=== PATIENT | female | born 1950 | race Caucasian/White ===

== ENCOUNTER 2016-07-04 20:14 | Emergency (ER) | payer OTHER ==
--- NOTE | 2016-07-04 22:57 | ED NURSING NOTES ---
Clinical Report - Nurses [facility] [address] [place] [address] 07/04/2016 20:23 Patient: LEBRON KEY TRIAGE Triage time 20:Jul 04 2016. Acuity: LEVEL 4. Chief Complaint: (right leg pain). 20:32 07/04/16. SEPSIS SCREEN: Sepsis Screen. Negative (no infection suspected/documented). VIDHI COMA SCORE: Vidhi Coma Scale: 15- eyes open spontaneously (4); best verbal response- oriented x 4 (5); best motor response- obeys commands (6). --20:37 Katlin Yip R.N. 20:32 07/04/16. BP: 169/97. HR: 90. RR: 18. O2 saturation: 99%. Temp: 98.4 F. Pain level now: 09/30. --20:37 Katlin Yip R.N. Weight: 63.5 kg. Height/Length: 64 inches Per Patient. BMI: 24. --20:32 Katlin Yip R.N. Medications PROzac Oral (Capsule 40 mg) 1 capsule, daily. --20:34 Katlin Yip R.N. CHOLESTEROL MED. --20:34 Katlin Yip R.N. Carvedilol Oral. --20:35 Katlin Yip R.N. Centrum. --20:35 Katlin Yip R.N. Calcium Supplement. --20:35 Katlin Yip R.N. Apspirin. --20:35 Katlin Yip R.N. Medication/allergy information source: the patient. --20:37 Katlin Yip R.N. Allergies No Known Drug Allergy. --20:35 Katlin Yip R.N. History Arrived by private vehicle. Historian: patient. Accompanied by family. Onset. (1 weeks ago). ( pain ongoing for 1 week. worse today, unable to sleep due to pain). No fever, weakness, cough, difficulty breathing or skin rash. Denies muscle aches. 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 SOCIAL HX: Heavy tobacco smoker (cigarette)- 1 pack per day. No alcohol use or drug use. No infectious disease exposure. ABUSE ASSESSMENT: No report of abuse. SELF HARM ASSESSMENT: A self harm assessment was performed. The patient answered "no" to the question "Have you recently felt down, depressed, or hopeless?", "Have you noticed less interest or pleasure in doing things?", "Do you have thoughts of harming or killing yourself?", "Are you here because you tried to hurt yourself?", "Have you ever tried to hurt yourself before today?", "Have you recently had thoughts about harming or killing others?" and "Do you have any dangerous items in your possession?". NUTRITIONAL RISK ASSESSMENT: The nutritional risk assessment revealed no deficiencies. FUNCTIONAL ASSESSMENT: Functional assessment: no impairments noted. LEARNING NEEDS ASSESSMENT: The learning needs assessment revealed no barriers. SKIN INTEGRITY ASSESSMENT: Skin integrity risk assessment completed. No skin integrity risk identified. --20:37 Katlin Yip R.N. PROBLEMS: Hypertension. Hypercholesterolemia. Depression. --20:36 Katlin Yip R.N. ADDITIONAL SURGERIES: Mastectomy. Wrist surgery. --20:36 Katlin Yip R.N. Interventions 20:36 07/04/16. ID band on patient. --20:37 Katlin Yip R.N. PHYSICAL ASSESSMENT 20:35 07/04/16. GENERAL / NEURO / PSYCH: Alert. Oriented X 4. Appears in no acute distress. HEENT: Pupils equal, round and reactive to light. Mucous membranes are pink. RESPIRATORY: Breath sounds within normal limits. CVS: Pulses within normal limits. EXTREMITIES: Extremities atraumatic. No motor deficit in the extremities. Sensation intact. No extremity rash. No upper extremity edema. No lower extremity edema. Normal gait. SKIN: Skin intact. Skin is warm and dry. Normal skin turgor. --20:53 Katlin Yip R.N. NURSING PROGRESS NOTES 20:32 07/04/16. The initial plan of care for this patient includes an assessment with efforts to address the patient's anxiety; the presence of pain; impairment of the neurological and musculoskeletal system. This plan of care was discussed with the patient. Reassurance given. Two patient identifiers checked. Side rails up x 1. Bed placed in lowest position. Brakes of bed on. Patient ready for evaluation. --20:52 Katlin Yip R.N. Checked patient name and birthdate: patient confirmed. Blood samples drawn from the right antecubital space with syringe and 23g butterfly by tech per protocol ; labeled in presence of the patient: rainbow set. --21:15 Ting Vaughan 21:55 07/04/16. ( us completed. no change in patient condition). --21:55 Katlin Yip R.N. 22:19 07/04/16. The patient reports no complaints and she is resting quietly. Overall patient status is the same- she states feels the same. Patient waiting for disposition. --22:19 Katlin Yip R.N. DISPOSITION / DISCHARGE 23:24 07/04/16. Departure time: 23:Jul 04 2016. Condition at departure: improved and stable. The goals identified in the patient's plan of care were met. No learning barriers present. Reviewed medication(s) side effects, precautions, dosing and course information. Prescription(s) given to the patient. Patient verbalized understanding. Written instructions provided in Romansh. The patient was discharged home and accompanied by crystal mounter. She left the Emergency Department ambulatory and via private vehicle. Bag Machine Operator Helper driving. FALL RISK ASSESSMENT: Fall risk assessment completed. No fall risk identified. --23:25 Katlin Yip R.N. 22:51 07/04/16. BP: 154/90. HR: 88. RR: 16. O2 saturation: 97%. Pain level now: 09/30. 20:32 07/04/16. BP: 169/97. HR: 90. RR: 18. O2 saturation: 99%. Temp: 98.4 F. Pain level now: 09/30. --23:25 Katlin Yip R.N. Locked/Released at 07/04/2016 23:25 by Katlin Yip R.N.
--- NOTE | 2016-07-04 22:57 | ED NURSING NOTES ---
Clinical Report - Nurses [facility] [address] [place] [address] 07/04/2016 20:23 Patient: LEBRON KEY TRIAGE Triage time 20:Jul 04 2016. Acuity: LEVEL 4. Chief Complaint: (right leg pain). 20:32 07/04/16. SEPSIS SCREEN: Sepsis Screen. Negative (no infection suspected/documented). VIDHI COMA SCORE: Vidhi Coma Scale: 15- eyes open spontaneously (4); best verbal response- oriented x 4 (5); best motor response- obeys commands (6). --20:37 Katlin Yip R.N. 20:32 07/04/16. BP: 169/97. HR: 90. RR: 18. O2 saturation: 99%. Temp: 98.4 F. Pain level now: 09/30. --20:37 Katlin Yip R.N. Weight: 63.5 kg. Height/Length: 64 inches Per Patient. BMI: 24. --20:32 Katlin Yip R.N. Medications PROzac Oral (Capsule 40 mg) 1 capsule, daily. --20:34 Katlin Yip R.N. CHOLESTEROL MED. --20:34 Katlin Yip R.N. Carvedilol Oral. --20:35 Katlin Yip R.N. Centrum. --20:35 Katlin Yip R.N. Calcium Supplement. --20:35 Katlin Yip R.N. Apspirin. --20:35 Katlin Yip R.N. Medication/allergy information source: the patient. --20:37 Katlin Yip R.N. Allergies No Known Drug Allergy. --20:35 Katlin Yip R.N. History Arrived by private vehicle. Historian: patient. Accompanied by family. Onset. (1 weeks ago). ( pain ongoing for 1 week. worse today, unable to sleep due to pain). No fever, weakness, cough, difficulty breathing or skin rash. Denies muscle aches. 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 SOCIAL HX: Heavy tobacco smoker (cigarette)- 1 pack per day. No alcohol use or drug use. No infectious disease exposure. ABUSE ASSESSMENT: No report of abuse. SELF HARM ASSESSMENT: A self harm assessment was performed. The patient answered "no" to the question "Have you recently felt down, depressed, or hopeless?", "Have you noticed less interest or pleasure in doing things?", "Do you have thoughts of harming or killing yourself?", "Are you here because you tried to hurt yourself?", "Have you ever tried to hurt yourself before today?", "Have you recently had thoughts about harming or killing others?" and "Do you have any dangerous items in your possession?". NUTRITIONAL RISK ASSESSMENT: The nutritional risk assessment revealed no deficiencies. FUNCTIONAL ASSESSMENT: Functional assessment: no impairments noted. LEARNING NEEDS ASSESSMENT: The learning needs assessment revealed no barriers. SKIN INTEGRITY ASSESSMENT: Skin integrity risk assessment completed. No skin integrity risk identified. --20:37 Katlin Yip R.N. PROBLEMS: Hypertension. Hypercholesterolemia. Depression. --20:36 Katlin Yip R.N. ADDITIONAL SURGERIES: Mastectomy. Wrist surgery. --20:36 Katlin Yip R.N. Interventions 20:36 07/04/16. ID band on patient. --20:37 Katlin Yip R.N. PHYSICAL ASSESSMENT 20:35 07/04/16. GENERAL / NEURO / PSYCH: Alert. Oriented X 4. Appears in no acute distress. HEENT: Pupils equal, round and reactive to light. Mucous membranes are pink. RESPIRATORY: Breath sounds within normal limits. CVS: Pulses within normal limits. EXTREMITIES: Extremities atraumatic. No motor deficit in the extremities. Sensation intact. No extremity rash. No upper extremity edema. No lower extremity edema. Normal gait. SKIN: Skin intact. Skin is warm and dry. Normal skin turgor. --20:53 Katlin Yip R.N. NURSING PROGRESS NOTES 20:32 07/04/16. The initial plan of care for this patient includes an assessment with efforts to address the patient's anxiety; the presence of pain; impairment of the neurological and musculoskeletal system. This plan of care was discussed with the patient. Reassurance given. Two patient identifiers checked. Side rails up x 1. Bed placed in lowest position. Brakes of bed on. Patient ready for evaluation. --20:52 Katlin Yip R.N. Checked patient name and birthdate: patient confirmed. Blood samples drawn from the right antecubital space with syringe and 23g butterfly by tech per protocol ; labeled in presence of the patient: rainbow set. --21:15 Ting Vaughan 21:55 07/04/16. ( us completed. no change in patient condition). --21:55 Katlin Yip R.N. 22:19 07/04/16. The patient reports no complaints and she is resting quietly. Overall patient status is the same- she states feels the same. Patient waiting for disposition. --22:19 Katlin Yip R.N. DISPOSITION / DISCHARGE 23:24 07/04/16. Departure time: 23:Jul 04 2016. Condition at departure: improved and stable. The goals identified in the patient's plan of care were met. No learning barriers present. Reviewed medication(s) side effects, precautions, dosing and course information. Prescription(s) given to the patient. Patient verbalized understanding. Written instructions provided in Armenian. The patient was discharged home and accompanied by lead javascript developer. She left the Emergency Department ambulatory and via private vehicle. Employee'S Representative driving. FALL RISK ASSESSMENT: Fall risk assessment completed. No fall risk identified. --23:25 Katlin Yip R.N. 22:51 07/04/16. BP: 154/90. HR: 88. RR: 16. O2 saturation: 97%. Pain level now: 09/30. 20:32 07/04/16. BP: 169/97. HR: 90. RR: 18. O2 saturation: 99%. Temp: 98.4 F. Pain level now: 09/30. --23:25 Katlin Yip R.N. Locked/Released at 07/04/2016 23:25 by Katlin Yip R.N.
--- NOTE | 2016-07-04 22:57 | ED ORDER SUMMARY ---
..... Patient: LEBRON KEY OrderSheet [facility] VisitID: [id number] [address] [place] [address] 66y, F Registration Date/Time: 07/04/2016 ORDER SHEET Weight: 63.5 kg Allergies: No Known Drug Allergy GENERAL ORDERS: US Venous Right Urgent (20:58 07/04/2016 HBivens A.R.N.P.) (Ack 21:02 SRedmond) (22:41 MCampbell) CBC w Diff Urgent (20:58 07/04/2016 HBivens A.R.N.P.) (Ack 21:02 SRedmond) (21:14 LMuller) CMP Urgent (20:58 07/04/2016 HBivens A.R.N.P.) (Ack 21:02 SRedmond) (21:14 LMuller) D-Dimer Urgent (20:58 07/04/2016 HBivens A.R.N.P.) (Ack 21:02 SRedmond) (21:14 LMuller) MEDICATION ORDERS: IV FLUIDS: ORDER SHEET NOTES: [Electronically signed by Katlin Yip R.N. (23:25 07/04/2016)] [Electronically signed by Mirela García.R.N.P. (23:30 07/04/2016)] [Electronically locked/signed by Katlin Yip R.N. (23:25 07/04/2016)]
--- NOTE | 2016-07-04 22:57 | ED ORDER SUMMARY ---
..... Patient: ELBRON KEY OrderSheet [facility] VisitID: [id number] [address] [place] [address] 66y, F Registration Date/Time: 07/04/2016 ORDER SHEET Weight: 63.5 kg Allergies: No Known Drug Allergy GENERAL ORDERS: US Venous Right Urgent (20:58 07/04/2016 HBivens A.R.N.P.) (Ack 21:02 SRedmond) (22:41 MCampbell) CBC w Diff Urgent (20:58 07/04/2016 HBivens A.R.N.P.) (Ack 21:02 SRedmond) (21:14 LMuller) CMP Urgent (20:58 07/04/2016 HBivens A.R.N.P.) (Ack 21:02 SRedmond) (21:14 LMuller) D-Dimer Urgent (20:58 07/04/2016 HBivens A.R.N.P.) (Ack 21:02 SRedmond) (21:14 LMuller) MEDICATION ORDERS: IV FLUIDS: ORDER SHEET NOTES: [Electronically signed by Katlin Yip R.N. (23:25 07/04/2016)] [Electronically signed by Mirela García.R.N.P. (23:30 07/04/2016)] [Electronically locked/signed by Katlin Yip R.N. (23:25 07/04/2016)]
--- NOTE | 2016-07-04 22:57 | ED CLINICAL REPORT ---
Clinical Report - Physicians/Mid Levels [facility] [address] [place] [address] 07/04/2016 20:23 [id number] Time Seen: 20:52; initial patient contact, initial documentation, patient care assumed. Arrived- By private vehicle. Historian- patient. HISTORY OF PRESENT ILLNESS Chief Complaint: LOWER EXTREMITY PAIN. Not relieved by anything- worsened by walking. Severity is described as being severe. The quality is noted to be "pain". No radiation. This started about 1 weeks ago and is still present. Symptoms located in the area of the right thigh, right knee and right leg. The patient has not had redness. No swelling, bladder dysfunction, bowel dysfunction, sensory loss or motor loss. No difficulty walking. ( pt states the pain feels like a clot). Patient denies an injury. Similar symptoms previously: None. Recent medical care: Not recently seen/assessed. REVIEW OF SYSTEMS No chest pain or difficulty breathing. All systems otherwise negative, except as recorded above. PAST HISTORY See nurses notes. ( PROBLEMS: Hypertension. Hypercholesterolemia. Depression. --20:36 Katlin Yip R.N. ADDITIONAL SURGERIES: Mastectomy. Wrist surgery. --20:36 Katlin Yip R.N.). SOCIAL HISTORY Heavy tobacco smoker. No alcohol use or drug use. No recent travel. Is a local resident. FAMILY HISTORY Negative. ADDITIONAL NOTES The nursing notes have been reviewed with agreement regarding the chief complaint, HPI, ROS, PMH and patient medications and allergies. PHYSICAL EXAM Vital Signs: 07/04/2016 20:32 BP: 169/97. HR: 90. RR: 18. O2 saturation: 99%. Temp: 98.4 F. Pain level now: 10. Have been reviewed as abnormal and appear to be correct. Hypertensive. Heart rate normal. Respiratory rate normal. Temperature normal. Oxygen saturation normal. Appearance: Alert. Oriented X3. No acute distress. Eyes: Pupils equal, round and reactive to light. Eyes normal inspection. Neck: Normal inspection. Neck supple. CVS: Normal heart rate and rhythm. Heart sounds normal. Respiratory: No respiratory distress. Breath sounds normal. Back: Normal inspection. No tenderness. ROM normal. Skin: Skin intact. Skin warm and dry. Normal skin color. Normal skin turgor. Extremities: Lower extremities exhibit normal ROM. No lower extremity edema. Extremities otherwise negative. Gait: Normal gait. Neuro: Oriented X 3. No motor deficit. No sensory deficit. LABS, X-RAYS, AND EKG Lower Extremity Sonography: Negative study. Laboratory Tests: CBC w Diff: (SUDHA: 07/04/2016 21:10) ( [facility] 07/04/2016 21:22) Final results Test Result Flag Units (Reference) WHITE BLOOD COUNT 6.7 K/uL (4.5-11.5) RED BLOOD COUNT 4.54 M/uL (4.00-5.20) HEMOGLOBIN 12.3 gm/dL (12.0-16.0) HEMATOCRIT 37.3 % (36.0-46.0) MEAN CELL VOLUME 82 fL (80-100) MEAN CORPUSCULAR HGB 27 pg (26-34) MEAN CORPUSCULAR HGB CONC 33 g/dL (31-37) RED CELL DISTRIBUTION WIDTH 14.3 % (11.6-14.8) PLATELET COUNT 276 K/uL (150-400) NEUTROPHIL % 52.2 % (50-75) LYMPH % 35.5 % (25-40) MONO % 7.0 % (3-14) EOSINOPHIL % 4.8 H % (0-4) BASOPHIL % 0.5 % (0-2) [id number]: (SUDHA: 07/04/2016 21:10) ( [facility] 07/04/2016 21:32) Final results Test Result Flag Units (Reference) D-DIMER QUANTITATIVE 0.30 ug/mLFEU (0.27-0.52) The primary value of this quantitative assay relates toits negative predictive value (i.e. exclusion) of pulmonaryembolism/deep vein thrombosis/DIC.Elevated levels of d-dimer may also occur with:, age, cancer, inflammation, liver disease,post-op, infection, hematoma, coronary disease, peripheralarteriopathy, bleeding disorders and thrombolytic treatment.Results should be correlated with other clinical andradiological data.Testing Methodology: Latex Immunoassay CMP: (SUDHA: 07/04/2016 21:10) ( MsgRcvd 07/04/2016 21:34) Final results Test Result Flag Units (Reference) GLUCOSE 98 mg/dL (70-110) BUN 28 H mg/dL (7-18) CREATININE 1.7 H mg/dL (0.6-1.3) Estimated GFR 32.16 mL/min Estimated GFR- 38.98 mL/min Note: Persistent reduction over 3 months in eGFR<60 mL/min/1.73 m2 defines CKD. Patients with eGFR values>=60 mL/min/1.73 m2 may also have CKD if evidence ofpersistent proteinuria. Additional information may be foundat www.kidney.org. SODIUM 138 mmol/L (136-145) POTASSIUM 4.0 mmol/L (3.5-5.1) CHLORIDE 102 mmol/L (98-107) CARBON DIOXIDE 25 mmol/L (21-32) CALCIUM 8.9 mg/dL (8.5-10.1) TOTAL PROTEIN 7.6 g/dL (6.4-8.2) ALBUMIN 3.8 g/dL (3.3-5.0) BILIRUBIN, TOTAL 0.2 mg/dL (0.0-1.0) ALKALINE PHOSPHATASE 73 U/L (46-116) AST (SGOT) 19 U/L (15-37) ALT (SGPT) 24 U/L (12-78) . Note - Tests: (us read by [employer] sahil). PROGRESS AND PROCEDURES Patient counseled in person regarding the patient's stable condition, test results and diagnosis. 2245. Differential Diagnosis: I considered stress fracture, primary tumor of bone, myositis, fasciitis, tendonitis, bursitis, Funes's cyst and deep venous thrombosis as a possible cause of lower extremity pain in this patient. This is a partial list of diagnoses considered. Above considerations are based on history, physical exam, laboratory data and other information. Differential diagnosis was discussed with patient. Disposition: Discharged home in good and improved condition (22:57). Condition: good and stable. CLINICAL IMPRESSION Acute right hip and thigh pain. 07/04/2016 22:51 BP: 154/90. HR: 88. RR: 16. O2 saturation: 97%. Pain level now: 09/30. Vital Signs: have been reviewed as abnormal and appear to be correct. Hypertensive. INSTRUCTIONS Warnings: Further evaluation is necessary in order to recheck abnormal lab. It is very important to follow up with a physician. GENERAL WARNINGS: Return or contact your physician immediately if your condition worsens or changes unexpectedly, if not improving as expected, or if other problems arise. Specifically return if problem worsens. Prescription Medications: Ultram 50 mg tablets: take 1-2 orally every 6 hours as needed for pain. Dispense twenty (20). No refills. Substitution is permissible. Follow-up: Follow up with your doctor in about one week as needed. Call for an appointment. Summary of care provided to patient. Screening today revealed the patient's blood pressure to be in the hypertensive range. The patient should follow up with a primary care provider for blood pressure management. Understanding of the discharge instructions verbalized by patient. (Electronically signed by Mirela García A.R.N.P. 07/04/2016 23:30)
--- NOTE | 2016-07-04 23:30 | ED MAR SUMMARY ---
..... Medication Administration Record [facility] [address] [place], [place] [id number] Patient: LEBRON KEY Visit ID: [id number] 66y, F Weight: 63.5 kg Height/Length: 64 in BMI: 24 ALLERGIES: No Known Drug Allergy
--- NOTE | 2016-07-04 23:30 | ED DISCHARGE INSTRUCTIONS ---
Patient: LEBRON KEY General Instructions [facility] VisitID: [id number] [address] [place] [address] 66y, F Registration Date/Time: 07/04/2016 Acute right hip and thigh pain. 07/04/2016 22:51 BP: 154/90. HR: 88. RR: 16. O2 saturation: 97%. Pain level now: 09/30. Vital Signs: have been reviewed as abnormal and appear to be correct. Hypertensive. INSTRUCTIONS Warnings: Further evaluation is necessary in order to recheck abnormal lab. It is very important to follow up with a physician. GENERAL WARNINGS: Return or contact your physician immediately if your condition worsens or changes unexpectedly, if not improving as expected, or if other problems arise. Specifically return if problem worsens. Prescription Medications: Ultram 50 mg tablets: take 1-2 orally every 6 hours as needed for pain. Dispense twenty (20). No refills. Substitution is permissible. Follow-up: Follow up with your doctor in about one week as needed. Call for an appointment. Summary of care provided to patient. Screening today revealed the patient's blood pressure to be in the hypertensive range. The patient should follow up with a primary care provider for blood pressure management. Understanding of the discharge instructions verbalized by patient. ADDITIONAL INFORMATION Myofascial Pain Syndrome: Fibrositis Your pain is caused by a state of chronic muscle tension. This condition is called by various names: myofascial pain, fibrositis and trigger point pain. This can also be due to mechanical stress (such as working at a computer terminal for long periods; or work that requires repetitive motions of the arms or hands) or emotional stress (such as problems on the job or in your personal life). Sometimes there is no obvious cause. The pain can occur in the area of the muscle spasm or at a site distant to it. For example, spasm of a neck muscle can cause headache. Spasm of the muscle near the shoulder blade can cause pain shooting down the arm. Home Care: Try to identify the factors that may be causing your problem and change them: If you feel thatemotional stressis a cause of your pain, learn methods to deal more effectively with the stress in your life. These may include regular exercise, muscle relaxation techniques, meditation or simply taking time out for yourself. Consult your doctor or go to a local bookstore and review the many books and tapes available on the subject of stress reduction. If you feel that physical stress is a cause for your pain, try to modify any poor work habits. You may use acetaminophen (Tylenol) or ibuprofen (Motrin, Advil) to control pain, unless another medicine was prescribed. [NOTE: If you have chronic liver or kidney disease or ever had a stomach ulcer or GI bleeding, talk with your doctor before using these medicines.] The use of heat to the muscle (hot compress or heating pad) will be helpful to reduce muscle spasm. Some persons get relief with ice packs. Apply an ice pack (crushed or cubed ice in a plastic bag, wrapped in a towel) for 20 minutes at a time as needed. Use the method that feels best to you. Massaging the trigger point and stretching out the muscleare an important parts of prevention and treatment. Trigger point massage can be done by first applying heat to the area to warm and prepare the muscle. Have someone apply steady thumb pressure directly on the knot in the muscle (the most tender point) for 30 seconds. Release the pressure, then massage the surrounding muscle. Repeat the process, applying more pressure to the trigger point each time. Do this up to the limit of pain. With each treatment, the trigger point should become less tender and the pain should decrease. You can apply local pressure to trigger points in the back by lying on the floor with a tennis ball under the trigger point. Follow Up with your doctor as advised or if not improving within the next week. It may be necessary for you to receive physical therapy if you do not respond to home treatment alone. Get Prompt Medical Attention if any of the following occur: If your trigger point is in the chest muscles, observe for pain that becomes more severe, lasts longer, or spreads into your shoulder/arm, neck or back; you develop trouble breathing, sweating, nausea or vomiting in association with chest pain If you develop weakness or numbness in an extremity If your pain worsens, regardless of its location Tramadol Hydrochloride Oral tablet What is this medicine? TRAMADOL (TRA ma dole) is a pain reliever. It is used to treat moderate to severe pain in adults. How should I use this medicine? Take this medicine by mouth with a full glass of water. Follow the directions on the prescription label. If the medicine upsets your stomach, take it with food or milk. Do not take more medicine than you are told to take. Talk to your desktop support technician regarding the use of this medicine in children. Special care may be needed. What side effects may I notice from receiving this medicine? Side effects that you should report to your doctor or health child care associate as soon as possible: allergic reactions like skin rash, itching or hives, swelling of the face, lips, or tongue breathing difficulties, wheezing confusion itching light headedness or fainting spells redness, blistering, peeling or loosening of the skin, including inside the mouth seizures Side effects that usually do not require medical attention (report to your doctor or health child care associate if they continue or are bothersome): constipation dizziness drowsiness headache nausea, vomiting What may interact with this medicine? Do not take this medicine with any of the following medications: MAOIs like Carbex, Eldepryl, Marplan, Nardil, and Parnate This medicine may also interact with the following medications: alcohol or medicines that contain alcohol antihistamines benzodiazepines bupropion carbamazepine or oxcarbazepine clozapine cyclobenzaprine digoxin furazolidone linezolid medicines for depression, anxiety, or psychotic disturbances medicines for migraine headache like almotriptan, eletriptan, frovatriptan, naratriptan, rizatriptan, sumatriptan, zolmitriptan medicines for pain like pentazocine, buprenorphine, butorphanol, meperidine, nalbuphine, and propoxyphene medicines for sleep muscle relaxants naltrexone phenobarbital phenothiazines like perphenazine, thioridazine, chlorpromazine, mesoridazine, fluphenazine, prochlorperazine, promazine, and trifluoperazine procarbazine warfarin What if I miss a dose? If you miss a dose, take it as soon as you can. If it is almost time for your next dose, take only that dose. Do not take double or extra doses. Where should I keep my medicine? Keep out of the reach of children. Store at room temperature between 15 and 30 degrees C (59 and 86 degrees F). Keep container tightly closed. Throw away any unused medicine after the expiration date. What should I tell my health care provider before I take this medicine? They need to know if you have any of these conditions: brain tumor depression drug abuse or addiction head injury if you frequently drink alcohol containing drinks kidney disease or trouble passing urine liver disease lung disease, asthma, or breathing problems seizures or epilepsy suicidal thoughts, plans, or attempt; a previous suicide attempt by you or a family member an unusual or allergic reaction to tramadol, codeine, other medicines, foods, dyes, or preservatives or trying to get breast-feeding What should I watch for while using this medicine? Tell your doctor or health child care associate if your pain does not go away, if it gets worse, or if you have new or a different type of pain. You may develop tolerance to the medicine. Tolerance means that you will need a higher dose of the medicine for pain relief. Tolerance is normal and is expected if you take this medicine for a long time. Do not suddenly stop taking your medicine because you may develop a severe reaction. Your body becomes used to the medicine. This does NOT mean you are addicted. Addiction is a behavior related to getting and using a drug for a non-medical reason. If you have pain, you have a medical reason to take pain medicine. Your doctor will tell you how much medicine to take. If your doctor wants you to stop the medicine, the dose will be slowly lowered over time to avoid any side effects. You may get drowsy or dizzy. Do not drive, use machinery, or do anything that needs mental alertness until you know how this medicine affects you. Do not stand or sit up quickly, especially if you are an older patient. This reduces the risk of dizzy or fainting spells. Alcohol can increase or decrease the effects of this medicine. Avoid alcoholic drinks. You may have constipation. Try to have a bowel movement at least every 2 to 3 days. If you do not have a bowel movement for 3 days, call your doctor or health child care associate. Your mouth may get dry. Chewing sugarless gum or sucking hard candy, and drinking plenty of water may help. Contact your doctor if the problem does not go away or is severe. You have been given the following additional information: Myofascial Pain Syndrome Tramadol Hydrochloride Oral tablet (Electronically signed by Mirela García A.R.N.P. 07/04/2016 23:30)
--- NOTE | 2016-07-04 23:30 | ED MED RECONCILIATION SUMMARY ---
Patient: LEBRON KEY Medication Reconciliation Report [facility] VisitID: [id number] [address] [place] [address] 66y, F Registration Date/Time: 07/04/2016 Weight: 63.5 kg Height/Length: 64 in. BMI: 24.0 ALLERGIES: No Known Drug Allergy The patient's Home Medications are listed below: THE FOLLOWING MEDICATIONS NEED TO BE RECONCILED: Apspirin Calcium Supplement Carvedilol Oral Centrum CHOLESTEROL MED PROzac Oral (40 mg) 1 capsule, daily The source(s) of the original Home Medication information: patient The following Medications were given to the patient in the Emergency Department: None. The following Medications were prescribed to the patient: Ultram 50 mg tablets: take 1-2 orally every 6 hours as needed for pain. Dispense twenty (20). No refills. Substitution is permissible. -- Mirela García A.R.N.P.
--- NOTE | 2016-07-04 23:30 | ED MAR SUMMARY ---
..... Medication Administration Record [facility] [address] [place], [place] [id number] Patient: LEBRON KEY Visit ID: [id number] 66y, F Weight: 63.5 kg Height/Length: 64 in BMI: 24 ALLERGIES: No Known Drug Allergy
--- NOTE | 2016-07-04 23:30 | ED MED RECONCILIATION SUMMARY ---
Patient: LEBRON KEY Medication Reconciliation Report [facility] VisitID: [id number] [address] [place] [address] 66y, F Registration Date/Time: 07/04/2016 Weight: 63.5 kg Height/Length: 64 in. BMI: 24.0 ALLERGIES: No Known Drug Allergy The patient's Home Medications are listed below: THE FOLLOWING MEDICATIONS NEED TO BE RECONCILED: Apspirin Calcium Supplement Carvedilol Oral Centrum CHOLESTEROL MED PROzac Oral (40 mg) 1 capsule, daily The source(s) of the original Home Medication information: patient The following Medications were given to the patient in the Emergency Department: None. The following Medications were prescribed to the patient: Ultram 50 mg tablets: take 1-2 orally every 6 hours as needed for pain. Dispense twenty (20). No refills. Substitution is permissible. -- Mirela García A.R.N.P.
--- NOTE | 2016-07-04 23:33 | DIAGNOSTIC IMAGING REPORT ---
PROCEDURE: US VENOUS - RIGHT EXT INDICATION: Right knee and leg pain. TECHNIQUE: Color Doppler duplex imaging of the deep and superficial venous system without and with compression. COMPARISON: None. FINDINGS: Deep and superficial venous system of the right lower extremity is within normal limits. There is no evidence of deep vein thrombosis or superficial thrombophlebitis. IMPRESSION: 1. Negative venous ultrasound of the right lower extremity.
== END 2016-07-04 23:24 | disposition home or self-care (01) ==
LOC: ED SRH 20:14
DX: M79.651 Pain in right thigh (principal); M25.551 Pain in right hip; I10 Essential (primary) hypertension

== ENCOUNTER 2016-10-23 20:51 | Observation (INO) | payer OTHER ==
[~2016-10-23] VITALS: Ht 162.6 cm; Wt 65.0 kg
--- NOTE | 2016-10-23 22:21 | ED NURSING NOTES ---
Clinical Report - Nurses [facility] [place] [address] 10/23/2016 20:51 Patient: LEBRON KEY TRIAGE Triage time 20:57. Acuity: LEVEL 3. Chief Complaint: FORIEGN BODY SENSATION IN THROAT. --21:00 Sheriff Burleson R.N. 20:55 10/23/16. BP: 152/94. HR: 84. RR: 18. O2 saturation: 98%. Temp: 98 F. Pain level now: 0/10. --21:00 Sheriff Burleson R.N. Weight: 63.5 kg stated. Height/Length: 62 inches Per Patient. BMI: 25.6. --20:55 Sheriff Burleson R.N. Medications Apspirin. Calcium Supplement. Carvedilol Oral. Centrum. CHOLESTEROL MED. PROzac Oral (Capsule 40 mg) 1 capsule, daily. --20:58 Sheriff Burleson R.N. Allergies No Known Drug Allergy. --20:58 Sheriff Burleson R.N. History Arrived by private vehicle. Historian: patient and family. Accompanied by family. This is a recurrent problem. Started while eating (3 hours ago). ( A piece of meat stuck in the throat.). SURGERY HX: ( Left arm). SOCIAL HX: Smoker- current status unknown (6 cigarettes daily.). No alcohol use or drug use. FALL RISK ASSESSMENT: Fall risk assessment completed. No fall risk identified. NUTRITIONAL RISK ASSESSMENT: The nutritional risk assessment revealed no deficiencies. FUNCTIONAL ASSESSMENT: Functional assessment: no impairments noted. LEARNING NEEDS ASSESSMENT: The learning needs assessment revealed no barriers. SKIN INTEGRITY ASSESSMENT: Skin integrity risk assessment completed. No skin integrity risk identified. --21:00 Sheriff Burleson R.N. PROBLEMS: Lower Extremity Pain. Depression. Hypertension. Hypercholesterolemia. --20:58 Sheriff Burleson R.N. PHYSICAL ASSESSMENT To room via wheelchair. Patient gowned. GENERAL / NEURO / PSYCH: Alert. Oriented X 4. Appears anxious. HEENT: ( Drooling.). Mucous membranes are pink. RESPIRATORY: Respirations not labored. CVS: Capillary refill less than 2 seconds. SKIN: Skin is warm and dry. --21:00 Sheriff Burleson R.N. NURSING PROGRESS NOTES Head of bed elevated. Two patient identifiers checked. Call light placed in reach. Side rails up x 2. Bed placed in lowest position. Brakes of bed on. --21:01 Sheriff Burleson R.N. 21:25 10/23/2016 Nitroglycerin SL Tablets 0.4 mg given. Allergies verified and confirmed 5 rights. --21:25 Susana Navas R.N. 21:26 10/23/16. ( Patient tearful, no pain, just anxious.). --21:26 Susana Navas R.N. 21:25 10/23/16. BP: 154/94 (regular adult cuff) taken on the right arm, while sitting. HR: 82. RR: 18. O2 saturation: 98%. Pain level now: 0/10. --21:26 Susana Navas R.N. 21:31 10/23/2016 Glucagon IM 2 mg given. Given in the left deltoid. Allergies verified and confirmed 5 rights. --21:31 Susana Navas R.N. 21:31 10/23/16. BP: 139/86 (regular adult cuff) taken on the right arm, while sitting. HR: 85. RR: 18. O2 saturation: 96% on room air. Pain level now: 0/10. --21:33 Susana Navas R.N. 21:55 10/23/16. ( Patient given soda to drink, she is not wanting to because she says water is not going down. Requested patient to try the soda to help get object up or down). --21:55 Susana Navas R.N. 23:03 10/23/2016 Site #1 started via IV in the left forearm with an 20g angiocath, with aseptic technique and good blood return; one attempt. Saline lock flushed with 10 mL saline. --23:18 Sheriff Burleson R.N. 23:19 10/23/2016 Started bag #1 1000 mL IV Fluids IV NS (Saline); at 150 mL/hr over 4 hour(s) via site #1. Allergies verified and confirmed 5 rights. IV patency established. IV site checked: no pain, redness, or swelling. IV flushed thoroughly pre- and post-medication administration. --23:19 Sheriff Burleson R.N. DISPOSITION / DISCHARGE Admitted (2350 PM). Transported via stretcher by tech with IV. Report was given to a nurse via a phone call. Report included patient's care, treatment, medications, reviewed medication reconcilliation, and condition (including any recent changes or anticipated changes). All questions were answered. Report was acknowledged. Patient's personal items include: shirt, pants, socks and shoes; items were placed in belongings bag and transported with the patient. --00:10 Sheriff Burleson R.N. 00:08 10/24/16. BP: 159/85. HR: 75. RR: 22. O2 saturation: 99%. Temp: 98 F. --00:10 Sheriff Burleson R.N. Locked/Released at 10/24/2016 0:10 by Sheriff Burleson R.N.
--- NOTE | 2016-10-23 22:21 | ED CLINICAL REPORT ---
Clinical Report - Physicians/Mid Levels [facility] [address] [place] [address] 10/23/2016 20:51 Patient: LEBRON KEY Time Seen: 2054; upon arrival, initial patient contact, initial documentation, patient care assumed. Arrived- By private vehicle. Historian- patient. HISTORY OF PRESENT ILLNESS Chief Complaint: FOREIGN BODY SENSATION IN THROAT. This started just prior to arrival about 3 hours ago and is still present. Pain described as mild. No sore throat. (eating meat 3 hrs ago, and piece got stuck in throat). Similar symptoms previously: Frequently, as bad. ( states last time it happened they gave her a ntg sl and it removed the food, wants ntg sl now, refusing iv). Recent medical care: Not recently seen/assessed. REVIEW OF SYSTEMS No cough, difficulty breathing, chest pain or vomiting. All systems otherwise negative, except as recorded above. PAST HISTORY See nurses notes. PROBLEMS: Lower Extremity Pain. Depression. Hypertension. Hypercholesterolemia. --20:58 Sheriff Benjy, RJaja. SOCIAL HISTORY Light tobacco smoker. No alcohol use or drug use. No recent travel. Is a local resident. FAMILY HISTORY Negative. ADDITIONAL NOTES The nursing notes have been reviewed with agreement regarding the chief complaint, HPI, ROS, PMH and patient medications and allergies. PHYSICAL EXAM Vital Signs: 10/23/2016 20:55 BP: 152/94. HR: 84. RR: 18. O2 saturation: 98%. Temp: 98 F. Pain level now: 0/10. Have been reviewed as normal and appear to be correct. Appearance: Alert. No acute distress. Head: Normal external inspection. Eyes: Pupils equal, round and reactive to light. Conjunctivae and eyelids normal. ENT: Drooling present. Pharynx normal. Lips normal. Gums normal. No trismus present. Uvula midline. Neck: Normal inspection. Trachea midline. No adenopathy. Thyroid normal. Neck supple. CVS: Normal heart rate and rhythm. Heart sounds normal. Pulses normal. Respiratory: No respiratory distress. Breath sounds normal. Chest nontender. Abdomen: Soft and nontender. No organomegaly. Skin: Normal skin color. No rash. Normal skin turgor. Extremities: Extremities exhibit normal ROM. Extremities nontender. Neuro: Oriented X 3. No motor deficit. No sensory deficit. PROGRESS AND PROCEDURES Course of Care: 21:20 10/23/16. pt has elton for frequent moderate narcs, last rx #60 on 10/19 of hydrocodone 5mg, see report for full details 2154. nurse bringing pt soda, pt did not want to drink but encouraged to, pt took two sips of soda, spitting it back out 2214. back at bedside, pt had not tried any more soda, and stating 'she couldn't', encouraged to drink some more, pt took two more sips and spit it up. Discussed case with on-call health care provider, (call returned Dr Elias 22:20). Agreed upon treatment plan. Health care provider will see patient in hospital. Patient counseled in person regarding the patient's stable condition, diagnosis and need for admission. Differential Diagnosis: Other possible considerations: esophageal fb, abrasion, stricture, choking, trachea fb. Above considerations are based on history, physical exam and reassessment. Differential diagnosis was discussed with patient. Disposition: Admitted to Acute Care. 22:21. Condition: good and stable. CLINICAL IMPRESSION Impacted esophageal foreign body: food. (Electronically signed by Mirela García A.R.N.P. 10/23/2016 23:08)
--- NOTE | 2016-10-23 22:21 | ED ORDER SUMMARY ---
..... Patient: LEBRON KEY OrderSheet [facility] VisitID: [id number] [address] [place] [address] 66y, F Registration Date/Time: 10/23/2016 ORDER SHEET Weight: 63.5 kg (stated) Allergies: No Known Drug Allergy GENERAL ORDERS: PO Fluids (soda, give pt soda about 15-20min after meds) (21:04 10/23/2016 HBivens A.R.N.P.) (Ack 21:26 JSanders R.N.) (21:54 JSanders R.N.) NPO (after midnight) (22:50 10/23/2016 HBivens A.R.N.P.) (Ack 23:34 [facility]) CBC w Diff Urgent (22:50 10/23/2016 HBivens A.R.N.P.) (Ack 23:01 [facility]) CMP Urgent (22:50 10/23/2016 HBivens A.R.N.P.) (Ack 23:01 [facility]) MEDICATION ORDERS: Glucagon IM 2 mg (NOW) (21:03 10/23/2016 HBivens A.R.N.P.) (Ack 21:24 JSanders R.N.) (21:31 JSanders R.N.) NitroGLYCERIN SL 0.4 mg (Do not crush or chew, NOW) (21:03 10/23/2016 HBivens A.R.N.P.) (Ack 21:24 JSanders R.N.) (21:25 JSanders R.N.) IV FLUIDS: IV Saline Lock (22:50 10/23/2016 HBivens A.R.N.P.) (23:18 SSambou R.N.) IV NS : initial bolus none -, then 150 mL/hr for 4h (NOW); Routine (22:52 10/23/2016 Camille NÚÑEZ) (23:19 SSambou R.N.) ORDER SHEET NOTES: [Electronically signed by Mirela García.R.N.P. (23:08 10/23/2016)] [Electronically signed by Sheriff Cam Burleson (00:10 10/24/2016)] [Electronically locked/signed by Sheriff Cam Burleson (00:10 10/24/2016)]
--- NOTE | 2016-10-23 22:21 | ED ORDER SUMMARY ---
..... Patient: LEBRON KEY OrderSheet [facility] VisitID: [id number] [address] [place] [address] 66y, F Registration Date/Time: 10/23/2016 ORDER SHEET Weight: 63.5 kg (stated) Allergies: No Known Drug Allergy GENERAL ORDERS: PO Fluids (soda, give pt soda about 15-20min after meds) (21:04 10/23/2016 HBivens A.R.N.P.) (Ack 21:26 JSanders R.N.) (21:54 JSanders R.N.) NPO (after midnight) (22:50 10/23/2016 HBivens A.R.N.P.) (Ack 23:34 [facility]) CBC w Diff Urgent (22:50 10/23/2016 HBivens A.R.N.P.) (Ack 23:01 [facility]) CMP Urgent (22:50 10/23/2016 HBivens A.R.N.P.) (Ack 23:01 [facility]) MEDICATION ORDERS: Glucagon IM 2 mg (NOW) (21:03 10/23/2016 HBivens A.R.N.P.) (Ack 21:24 JSanders R.N.) (21:31 JSanders R.N.) NitroGLYCERIN SL 0.4 mg (Do not crush or chew, NOW) (21:03 10/23/2016 HBivens A.R.N.P.) (Ack 21:24 JSanders R.N.) (21:25 JSanders R.N.) IV FLUIDS: IV Saline Lock (22:50 10/23/2016 HBivens A.R.N.P.) (23:18 SSambou R.N.) IV NS : initial bolus none -, then 150 mL/hr for 4h (NOW); Routine (22:52 10/23/2016 Camille NÚÑEZ) (23:19 SSambou R.N.) ORDER SHEET NOTES: [Electronically signed by Mirela García.R.N.P. (23:08 10/23/2016)] [Electronically signed by Sheriff Cam Burleson (00:10 10/24/2016)] [Electronically locked/signed by Sheriff Cam Burleson (00:10 10/24/2016)]
[2016-10-23 23:58] VITALS: BP 169/98
[2016-10-24] VITALS (9 sets, daily range): BP systolic 112–162; BP diastolic 64–99
--- NOTE | 2016-10-24 00:11 | ED MAR SUMMARY ---
..... Medication Administration Record [facility] [address] [place] [address] Patient: LEBRON KEY Visit ID: [id number] 66y, F Weight: 63.5 kg Height/Length: 62 in BMI: 25.6 ALLERGIES: No Known Drug Allergy Given 21:25 10/23/2016 Susana Navas R.N. Medication Administered: NITROGLYCERIN [SL], Dose: 0.4 mg Tablets SL. Medication Ordered: NitroGLYCERIN SL 0.4 mg (Do not crush or chew, NOW). Given 21:31 10/23/2016 Susana Navas R.N. Medication Administered: GLUCAGON [IM], Dose: 2 mg IM. Medication Ordered: Glucagon IM 2 mg (NOW). Start 23:19 10/23/2016 Sheriff Burleson R.N. Medication Administered: IV NS (SALINE), Dose: IV Fluids over 4 hour(s), Rate: 150 mL/hr, Dispensed: 1000 mL bag, Site: #1 left forearm. Medication Ordered: IV NS : initial bolus none -, then 150 mL/hr for 4h (NOW); Routine.
--- NOTE | 2016-10-24 00:11 | ED MED RECONCILIATION SUMMARY ---
Patient: LEBRON KEY Medication Reconciliation Report [facility] VisitID: [id number] [address] [place] [address] 66y, F Registration Date/Time: 10/23/2016 Weight: 63.5 kg Height/Length: 62 in. BMI: 25.6 ALLERGIES: No Known Drug Allergy The patient's Home Medications are listed below: THE FOLLOWING MEDICATIONS NEED TO BE RECONCILED: Apspirin Calcium Supplement Carvedilol Oral Centrum CHOLESTEROL MED PROzac Oral (40 mg) 1 capsule, daily The source(s) of the original Home Medication information: Not obtained. The following Medications were given to the patient in the Emergency Department: Nitroglycerin [SL] SL 0.4 mg, administered: 10/23/2016 9:25:00 PM Glucagon [IM] IM 2 mg, administered: 10/23/2016 9:31:00 PM IV NS IV Fluids bolus 0, then 150 mL/hr, administered: 10/23/2016 11:19:00 PM The following Medications were prescribed to the patient: None.
--- NOTE | 2016-10-24 00:11 | ED DISCHARGE INSTRUCTIONS ---
Patient: TASIA KEYJANAY Robbins General Instructions [facility] VisitID: [id number] [address] [place] [address] 66y, F Registration Date/Time: 10/23/2016 Impacted esophageal foreign body: food. (Electronically signed by Mirela García A.R.N.P. 10/23/2016 23:08)
--- NOTE | 2016-10-24 00:11 | ED MAR SUMMARY ---
..... Medication Administration Record [facility] [address] [place] [address] Patient: LEBRON KEY Visit ID: [id number] 66y, F Weight: 63.5 kg Height/Length: 62 in BMI: 25.6 ALLERGIES: No Known Drug Allergy Given 21:25 10/23/2016 Susana Navas R.N. Medication Administered: NITROGLYCERIN [SL], Dose: 0.4 mg Tablets SL. Medication Ordered: NitroGLYCERIN SL 0.4 mg (Do not crush or chew, NOW). Given 21:31 10/23/2016 Ssuana Navas R.N. Medication Administered: GLUCAGON [IM], Dose: 2 mg IM. Medication Ordered: Glucagon IM 2 mg (NOW). Start 23:19 10/23/2016 Sheriff Burleson R.N. Medication Administered: IV NS (SALINE), Dose: IV Fluids over 4 hour(s), Rate: 150 mL/hr, Dispensed: 1000 mL bag, Site: #1 left forearm. Medication Ordered: IV NS : initial bolus none -, then 150 mL/hr for 4h (NOW); Routine.
--- NOTE | 2016-10-24 00:11 | ED DISCHARGE INSTRUCTIONS ---
Patient: TASIA KEYJANAY Robbins General Instructions [facility] VisitID: [id number] [address] [place] [address] 66y, F Registration Date/Time: 10/23/2016 Impacted esophageal foreign body: food. (Electronically signed by Mirela García A.R.N.P. 10/23/2016 23:08)
--- NOTE | 2016-10-24 00:11 | ED MED RECONCILIATION SUMMARY ---
Patient: LEBRON KEY Medication Reconciliation Report [facility] VisitID: [id number] [address] [place] [address] 66y, F Registration Date/Time: 10/23/2016 Weight: 63.5 kg Height/Length: 62 in. BMI: 25.6 ALLERGIES: No Known Drug Allergy The patient's Home Medications are listed below: THE FOLLOWING MEDICATIONS NEED TO BE RECONCILED: Apspirin Calcium Supplement Carvedilol Oral Centrum CHOLESTEROL MED PROzac Oral (40 mg) 1 capsule, daily The source(s) of the original Home Medication information: Not obtained. The following Medications were given to the patient in the Emergency Department: Nitroglycerin [SL] SL 0.4 mg, administered: 10/23/2016 9:25:00 PM Glucagon [IM] IM 2 mg, administered: 10/23/2016 9:31:00 PM IV NS IV Fluids bolus 0, then 150 mL/hr, administered: 10/23/2016 11:19:00 PM The following Medications were prescribed to the patient: None.
[2016-10-24] MEDS ORDERED: COREG12.5 MG PO (00:32)
[2016-10-24] MEDS ORDERED: ASPIRIN ADULT L81 MG PO (00:32)
[2016-10-24] MEDS ORDERED: COREG3.125 MG PO (00:33)
[2016-10-24] MEDS ORDERED: CENTRUM1 TAB PO (00:33)
[2016-10-24] MEDS ORDERED: PROZAC40 MG PO (00:34)
[2016-10-24] MEDS ORDERED: CHOLESTEROL MED (00:35)
--- NOTE | 2016-10-24 08:57 | Consultation Report ---
History Chief Complaint Difficulty swallowing History of Present Illness 66-year-old female admitted to [facility] via the emergency room by Dr. Curt montero. patient states that she was eating a piece of steak and felt to be lodged in her esophagus. Patient states that she is having difficulty handling her secretion. The patient denies any chest pain. Patient denies any shortness of breath. The patient states that this is her third episode. Her last occurring 2 years ago. She was treated at [facility] in [place] by Dr. Andrade. Patient History 1. Esophageal foreign body Social History Reversed. Once 1 daughter alive and well. Patient smoked before the pack cigarettes per day. The patient does not drink alcohol. Patient denies use of recreational drugs. 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 PAST MEDICAL/SURGICAL HISTORY: Hypertension. Hypercholesterolemia. Status post left mastectomy for breast cancer. Status post multiple EGDs with foreign body of the esophagus. FAMILY HISTORY: Mother age 85 natural causes. Father in his 70s, [place] 4 brothers, 3 , one from COPD, and 2 from heart disease. 2 sisters alive and well. No history of depression or suicide that the patient is aware of Medications and Allergies Medications Current Medications Sig/Brittney Start time Last Medication Dose Route Stop Time Status Admin Hydromorphone HCl 0.5 MG Q4H PRN 10/23 2300 AC / IV 0715 Lactated Ringer's 1,000 ML ASDIRECTED 10/23 2300 AC 07/04 IV 0021 Lorazepam 0.5 MG Q8H PRN 10/23 2300 AC /04 IV 0021 Ondansetron HCl 4 MG Q4H PRN 10/23 2300 AC IV Allergies Coded Allergies: NKA (10/23/16) Allergies No Known Drug Allergy. --20:58 Sheriff Burleson R.N. Reconcile Medications Scheduled Medications Aspirin (Aspirin Adult Low Strength 81 MG) 81 MG CHW 81 MG PO DAILY (Reported ) Carvedilol (Coreg 3.125 MG) (Unknown Strength) TAB (Unknown Dose) PO BIDWC ( Reported) Fluoxetine HCl (Prozac 40 MG) 40 MG CAP 40 MG PO DAILY (Reported) Multiple Vitamins W/ Minerals (Centrum) 1 TAB TAB 1 TAB PO DAILY (Reported) Miscellaneous Medications [CHOLESTEROL MED] (Reported) Discontinued Medications Carvedilol (Coreg 12.5 MG) (Unknown Strength) TAB (Unknown Dose) PO BIDWC ( Reported) Discontinued reason: Dose Change Review of Systems Other G2, P2, AB 0. Menarche age 16. Last menstrual period of 37. Her first full- term age 20. Last Pap smear couple years ago. Last mammogram a couple years ago. Patient is very anxious about the procedure secondary to the poor encounter she had during her last EGD at another institution. Patient denies any history of depression or suicidal ideation. The remaining 12 point review of systems negative Physical Exam Vital Signs / I&Os Vital Signs Date Time Temp Pulse Resp B/P Pulse O2 O2 Flow FiO2 Ox Delivery Rate 10/24 0812 Room Air 0.0 10/24 0620 98.2 84 20 112/77 98 Room Air 0.0 10/24 0326 97.9 88 20 153/88 99 Room Air 10/24 0044 77 157/88 10/23 2358 97.5 76 20 169/98 100 Room Air I&O 10/23 0800 10/23 1600 10/24 0000 Intake Total Output Total Balance General Appearance Alert, Oriented X3, Cooperative, No acute distress HEENT Atraumatic, PERRLA, EOMI, Moist mucous membranes Lungs Clear to auscultation Cardiovascular Regular rate and rhythm Abdomen Normal bowel sounds, Soft, No tenderness, No guarding, No rebound, No masses, No hepatosplenomegaly Extremities No cyanosis, No clubbing, No edema Skin warm and dry Neurological No lateralizing signs Psych/Mental Status Mental status normal, anxious LAB Results Laboratory Tests 10/23 2310 Chemistry Plasma Sodium (136 - 145 mmol/L) 143 Plasma Potassium (3.5 - 5.1 mmol/L) 3.4 Plasma Chloride (98 - 107 mmol/L) 107 CO2 (Enzymatic) (21 - 32 mmol/L) 23 BUN (7 - 18 mg/dL) 29 Creatinine (0.6 - 1.3 mg/dL) 1.6 Est GFR ( Amer) (mL/min) 41.80 Est GFR (Non-Af Amer) (mL/min) 34.49 Glucose (70 - 110 mg/dL) 116 Plasma Calcium (8.5 - 10.1 mg/dL) 9.0 Total Bilirubin (0.0 - 1.0 mg/dL) 0.3 AST (15 - 37 U/L) 25 ALT (12 - 78 U/L) 26 Alkaline Phosphatase (46 - 116 U/L) 69 Total Protein (6.4 - 8.2 g/dL) 7.5 Albumin (3.3 - 5.0 g/dL) 3.7 Hematology WBC (4.5 - 11.5 K/uL) 13.3 RBC (4.00 - 5.20 M/uL) 4.45 Hgb (12.0 - 16.0 gm/dL) 12.2 Hct (36.0 - 46.0 %) 37.0 MCV (80 - 100 fL) 83 MCH (26 - 34 pg) 28 RDW (11.6 - 14.8 %) 14.4 Neut % (Auto) (50 - 75 %) 67.8 Lymph % (Auto) (25 - 40 %) 22.3 [place] % (Auto) (3 - 14 %) 6.9 Eos % (Auto) (0 - 4 %) 2.6 Baso % (Auto) (0 - 2 %) 0.4 Plt Count, EDTA (150 - 400 K/uL) 237 PUBS MCHC (31 - 37 g/dL) 33 Assessment and Plan Problem List 1. Esophageal foreign body Plan The patient had been administered glucagon and nitroglycerin in the emergency room. During her hospitalization, she is still unable to handle her secretions. She denies any chest pain or shortness breath we will take her to surgery to perform upper GI endoscopy, rule out foreign body. I have reassured the patient that we will take good care of her make her nice comfortable she will not remember the procedure. This assurance seemed to calm her down. The risks, benefits, surgery been explained to patient. She understands and agrees to proceed. We will schedule her for urgent EGD and removal of foreign body in the esophagus.
--- NOTE | 2016-10-24 12:09 | Provider's Discharge Care Plan ---
Problem, Goal, Plan Problem List 1. STATUS POST EGD WITH REMOVAL OF FOREIGN BODY OF THE ESOPHAGUS Goals: Improve disease control, Improve function, Therapeutic intervention Instructions: Follow up as needed, Take meds as directed
--- NOTE | 2016-10-24 12:21 | Operative Report ---
Operative Report Date of Surgery: 10/24/16 Preoperate Diagnosis: foreign body, esophagus Postoperative Diagnosis: foreign body in the esophagus Surgeon: Buster Chavez MD [employer] Supervisor Surgeon: none Procedure Performed: EGD with removal of foreign body of the esophagus Anesthesia: Gen. endotracheal Indications: 66-year-old female admitted via the emergency room after the patient stated that while she was eating a piece of steak, it got lodged in her esophagus. This is the third recurrence. The last happening 2 years ago. Denies any shortness of breath or chest pain. FINDINGS: Foreign body/food bolus lodged proximal esophagus (15 cm from the incisors, just beyond the cricopharyngeus); dislodged Surgical Technique: Patient brought to the operating room, placed in the dorsal supine position where she underwent general endotracheal anesthesia by the anesthesiology department. After proper anesthesia had taken effect, an Olympus fiberoptic video flexible upper GI endoscope was passed down the patient's posterior pharynx, and the esophagus intubated. Immediately we encountered the foreign body. Carefully and tediously using biopsy forceps, the foreign body was piecemeal removed until sufficient foreign body was removed to allow pushing the foreign body into the stomach. The scope then passed down the esophagus into the gastric lumen where was retroflexed, and the dislodged foreign body identified. Scope withdrawn the esophagus carefully inspected. The site of the foreign body lodgement was inspected carefully and noted to be irritated but no perforation or mucosal tearing. The scope was completely withdrawn. Patient tolerated procedure well. Was extubated and transferred to recovery room in stable condition. There were no intraoperative complications.
== END 2016-10-24 14:00 ==
LOC: ED SRH 20:51 → ACUTE2 SRH 22:48 → TRANS SRH 22:48 → ACUTE2 SRH 10-24 00:01
PROVIDERS: Specialist; ADMIT Emergency Medicine
PROC: 0DC18ZZ Extirpation of Matter from Upper Esophagus, Via Natural or Artificial Opening Endoscopic (ICD-10-PCS; principal; 2016-10-24 10:45)
DX: T18.128A Food in esophagus causing other injury, initial encounter (principal); I10 Essential (primary) hypertension; F17.200 Nicotine dependence, unspecified, uncomplicated
CPT/HCPCS: 29229; 29230; 29249; 29259; 50004; 60001; 70002; 82900; 82943; 90100; 95059